=== PATIENT | female | born 1955 | race Asian ===

== ENCOUNTER 2024-07-25 06:15 | Emergency (ER) | payer MEDICARE, OTHER ==
[~2024-07-25] VITALS: Ht 149.9 cm; Wt 68.2 kg
[2024-07-25 06:30] VITALS: BP 154/91; PULSE 75; RESP 20; TEMP 97.9; O2SAT 98
[2024-07-25] MEDS: PredniSONE 20 MG TABLET PO ONE (06:58)
[2024-07-25] MEDS: DiphenhydrAMINE HCL 50 MG/ML VIAL IM ONE (06:58)
[2024-07-25 07:29] LABS: APPEARANCE,URINE CLEAR (CLEAR); BILIRUBIN,URINE NEGATIVE (NEGATIVE); COLOR,URINE LIGHT YELLOW (YELLOW); GLUCOSE, URINE (UA) NEGATIVE (NEGATIVE); KETONES,URINE NEGATIVE (NEGATIVE); LEUKOCYTE ESTERASE ,URINE SMALL (NEGATIVE); NITRATE,URINE NEGATIVE (NEGATIVE); OCCULT BLOOD,URINE TRACE (NEGATIVE); PH,URINE 5.5 (5.0-8.0); PROTEIN,URINE NEGATIVE (NEGATIVE); SPECIFIC GRAVITIY, URINE 1.014 (1.003-1.030); UROBILINOGEN,URINE <=1.0 mg/dL (<=1.0)
[2024-07-25 07:42] LABS: BACTERIA,URINE None Seen /HPF (None Seen); RBC,URINE 0-2 /HPF (0-2); SQUAMOUS EPITHELIAL CELL,UR Few /LPF (None Seen); WBC,URINE 0-2 /HPF (0-5)
[2024-07-25] MEDS ORDERED: CEPH-558 PO (07:49)
[2024-07-25] MEDS ORDERED: PRED-554 PO (07:49)
[2024-07-25] MEDS ORDERED: DIPH-1243 PO (07:49)
== END 2024-07-25 07:58 | disposition home or self-care (01) ==
LOC: EMS 06:15
DX: T78.40XA Allergy, unspecified, initial encounter (principal); Z79.52 Long term (current) use of systemic steroids; X58.XXXA Exposure to other specified factors, initial encounter
CPT/HCPCS: 99283; 81001; 96372; J1200; J7512

== ENCOUNTER 2024-08-02 12:14 | Emergency (ER) | payer MEDICARE, OTHER ==
[~2024-08-02] VITALS: Ht 149.9 cm; Wt 65.9 kg
[~2024-08-02 12:14] MED LIST: CEPH-558 PO; DIPH-1243 PO; PRED-554 PO
[2024-08-02 12:18] VITALS: BP 132/66; PULSE 81; RESP 18; TEMP 98.1; O2SAT 98
[2024-08-02] MEDS: PredniSONE 20 MG TABLET PO ONE (14:10)
[2024-08-02] MEDS: CLOTRIMAZOLE 1% 15 GM CREAM TP ONE (14:23)
[2024-08-02] MEDS ORDERED: PRED-554 PO (14:40)
== END 2024-08-02 14:47 | disposition home or self-care (01) ==
LOC: EMS 12:23
DX: L30.8 Other specified dermatitis (principal); Z79.52 Long term (current) use of systemic steroids
CPT/HCPCS: 99283; J7512

== ENCOUNTER 2024-08-07 21:10 | Emergency (ER) | payer MEDICARE, OTHER ==
[~2024-08-07] VITALS: Ht 149.9 cm; Wt 65.9 kg
[2024-08-07] MEDS: DiphenhydrAMINE HCL 25 MG CAPSULE PO ONE (22:16)
[2024-08-08 00:30] VITALS: BP 142/74; PULSE 70; RESP 18; TEMP 97.9; O2SAT 98
[2024-08-08] MEDS ORDERED: HYDR30CR39 TP (00:39)
[2024-08-08] MEDS ORDERED: PRED-554 PO (00:39)
[2024-08-08] MEDS: PredniSONE 20 MG TABLET PO ONE (00:43)
[2024-08-08] MEDS: HYDROCORTISONE 1% 30 GM CREAM TP ONE (01:09)
== END 2024-08-08 00:48 | disposition home or self-care (01) ==
LOC: EMS 21:10
DX: L50.9 Urticaria, unspecified (principal); Z79.52 Long term (current) use of systemic steroids
CPT/HCPCS: 99283; J7512